=== PATIENT | male | born 1985 | race Two or more races ===

== ENCOUNTER 2018-08-31 16:12 | Emergency (ER) | payer MEDICAID, OTHER ==
[~2018-08-31] VITALS: Ht 175.3 cm; Wt 81.6 kg
[2018-08-31 17:05] VITALS: BP 139/78
[2018-08-31 17:22] LABS: Urine Bacteria NONE SEEN /hpf (None Seen); Urine Blood 1+ /uL (Negative); Urine Specific Gravity 1.029 (1.001-1.035); Urine WBC 1 /hpf (0 - 3)
[2018-08-31] MEDS ORDERED: KETOROLAC TROMETH 60MG/2ML VIAL IM ONE (17:30)
== END 2018-08-31 17:52 | disposition home or self-care (01) ==
LOC: ER 16:17
DX: M54.41 Lumbago with sciatica, right side (principal); X50.1XXA Overexertion from prolonged static or awkward postures, initial encounter; Y93.01 Activity, walking, marching and hiking; Y92.89 Other specified places as the place of occurrence of the external cause; Y99.8 Other external cause status
CPT/HCPCS: 81001; 96372; 99283; J1885